=== PATIENT | male | born 1995 | race African-American/Black ===

== ENCOUNTER 2017-06-22 17:24 | Emergency (ER) | payer BC, OTHER ==
[~2017-06-22] VITALS: Ht 172.7 cm; Wt 50.8 kg
[2017-06-22 18:10] VITALS: BP 121/74
[2017-06-22 18:30] LABS: Basophils # (auto) 0 uL; Basophils % (auto) 0.5 % (0.0-2.0); CONDITION Y; Eosinophils # (auto) 0 uL; Hematocrit 45.5 % (41.0-53.0); Hemoglobin 15.1 g/dL (13.5-17.5); Lymphocytes # (auto) 1.4 uL; Lymphocytes % (auto) 19.6 % (10.0-50.0); Mean Corpuscular Hemoglobin 31.1 pg (28.0-32.0); Mean Corpuscular Hgb Conc. 33.3 g/dL (32.0-36.0); Mean Corpuscular Volume 93.6 fL (80.0-100.0); Mean Platelet Volume 7.1 fL (7.4-10.4); Monocytes # (auto) 0.4 uL; Monocytes % (auto) 5.1 % (0.0-12.0); Neutrophils # (auto) 5.5 uL; Neutrophils % (auto) 74.8 % (37.0-80.0); Platelet Count (auto) 293 10^3/uL (140-450); Red Cell Distribution Width 13.1 % (11.6-16.0); White Blood Cell 7.4 10^3/uL (4.4-10.8)
[2017-06-22 18:30] LABS: Urine RBC None Seen /hpf (0 - 3)
[2017-06-22 18:43] LABS: Urine Bilirubin Negative (Negative); Urine Blood Negative /uL (Negative); Urine Color Yellow (Yellow); Urine Glucose Normal (Normal); Urine Ketone 2+ (Negative); Urine Mucus FEW (None Seen); Urine Nitrite Negative (Negative); Urine Squamous Epithelial Cell FEW /hpf (<5); Urine Urobilinogen Normal (Negative)
[2017-06-22 18:48] LABS: Albumin 4.6 g/dL (3.4-5.0); BUN/Creatinine Ratio 11.4; Bilirubin, Total 1.5 mg/dL (0.2-1.0); Calcium 9.8 mg/dL (8.5-10.1); Potassium 3.6 mmol/L (3.5-5.1); Total Protein 7.8 g/dL (6.4-8.2)
== END 2017-06-22 23:48 | disposition left against medical advice (07) ==
LOC: ER 17:42
DX: R10.10 Upper abdominal pain, unspecified (principal); Z53.21 Procedure and treatment not carried out due to patient leaving prior to being seen by health care provider
CPT/HCPCS: 36415; 74176; 80053; 80307; 81001; 82150; 83690; 85025

== ENCOUNTER → 2017-06-23 08:35 | Emergency (ER) | payer BC ==
[~2017-06-23] VITALS: Ht 172.7 cm; Wt 50.8 kg
[2017-06-23 08:58] VITALS: BP 121/83
== END | disposition home or self-care (01) ==
LOC: ER 08:35
DX: K29.50 Unspecified chronic gastritis without bleeding (principal); F12.10 Cannabis abuse, uncomplicated